=== PATIENT | male | born 1995 | race Caucasian/White ===

== ENCOUNTER → 2020-09-09 | Outpatient (CLI) | payer OTHER | LOC: KOH-I 14:18 | DX: S92.412A Displaced fracture of proximal phalanx of left great toe, initial encounter for closed fracture (principal); X58.XXXA Exposure to other specified factors, initial encounter | CPT/HCPCS: 73630 ==

== ENCOUNTER → 2020-09-30 | Outpatient (CLI) | payer OTHER | LOC: KOH-I 15:02 | DX: S92.412A Displaced fracture of proximal phalanx of left great toe, initial encounter for closed fracture (principal) | CPT/HCPCS: 73630 ==

== ENCOUNTER → 2020-10-28 | Outpatient (CLI) | payer OTHER | LOC: KOH-I 15:02 | DX: S92.492D Other fracture of left great toe, subsequent encounter for fracture with routine healing (principal) | CPT/HCPCS: 73660 ==

== ENCOUNTER → 2020-11-23 | Outpatient (CLI) | payer OTHER | LOC: KOH-I 11:07 | DX: S92.412D Displaced fracture of proximal phalanx of left great toe, subsequent encounter for fracture with routine healing (principal) | CPT/HCPCS: 73660 ==